=== PATIENT | female | born 1980 | race Caucasian/White ===

== ENCOUNTER → 2019-05-24 10:30 | Outpatient (CLI) | payer SELFPAY ==
[2019-05-25 13:59] LABS: Chlamydia Trachomatis by PCR Negative (Negative)
[2019-05-25 14:00] LABS: Neisserai gonorrhoeae by PCR Negative (Negative); Probe Check PASS; Sample Adequacy Control PASS; Specimen Processing Control PASS
== END ==
PROVIDERS: Referring Provider Obstetrics & Gynecology; Visit Provider Obstetrics & Gynecology
DX: Z34.82 Encounter for supervision of other normal pregnancy, second trimester (principal); Z11.3 Encounter for screening for infections with a predominantly sexual mode of transmission
CPT/HCPCS: 87491; 87591

== ENCOUNTER 2019-11-14 10:00 | Inpatient (IN) | payer SELFPAY ==
--- NOTE | 2019-11-13 21:27 | PCM.HP.BLA ---
History and Physical Date of Admission: 11/14/19 ACOG ANTEPARTUM RECORD - HISTORY AND PHYSICAL (11/13/2019) Name: URBANO BINGHAM History of This : This is a 39-year-old 12 para 7 AB 4 who presents for primary section and tubal. She desires elective section because of extremely difficult labors that she has had in the past. She also desires permanent sterilization and has considered this form of control for quite some time. OB Physician: SANDIP [place]'s Physician: ...................................................................... : 1980 Age: 39 Address: [address] [place] [address] Phone: (h) [phone] (O) [phone] Insurance Carrier: [employer] [phone] Emergency Contact: NO ONE ...................................................................... Final KEVYN: 11/20/19 By Ultrasound: 11 weeks 4 days PARITY:[id number] (G-Total Pregnancies P-Fullterm,Premature,Induced AB,Spont AB, Ectopics, Multiple,Living) KEVYN CONFIRMATION: By LMP: 02/12/19 Initial Exam: 05/04/19 Final KEVYN: 11/20/19 OB PROBLEM LIST: Considering Elective prefers [facility] but OK with WC if needed Declines AFP with consent signed as such Transfer of care from Gonzalez Zayas ALLERGIES: Adhesive Tape Hives and/or rash NKA MEDICATIONS: magnesium 200 mg tablet As Directed Supplement (s) [No Strength] As Directed enzymes Supplement (s) [No Strength] As Directed iodine Supplement (s) [No Strength] As Directed probiotics Supplement (s) [No Strength] cayenne (for warmth) vitamin B complex capsule As Directed SOCIAL HISTORY: Smoking - denies smoking Alcohol Use - denies drinking Diet - no special diet Lifestyle - moderate stress lifestyle and Exercise - active work Employer - [employer] 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 Drug Use - denies use of street drugs Sexual Activity - Spouse-Sig Other Name - Jose Angel Spouse-Sig Other Occupation - [employer] Spouse-Sig Other Phone No - [phone] Children Name(s) - 7 children 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 Jul 23 41 24 0 0 Vagin Epidural No Jan 21 40 24 0 0 Vag Epidural No Dec 26 40 9 0 0 Vag None No Sep 17 41 38 0 0 Vag None No November 23 40 24 0 0 Vag None No Jan 27 41 36 0 0 Vag None No May 18 40 34 0 0 Vag Epidural No ANTEPARTUM FLOW CHART VISIT RTC FU F F MO U U DATE WK WKS HT PN HR M SS BP ED WT MO GL D EF ST __ ____ ___ __ __ ___ __ __ __ ___ __ __ __ ___ __ 28 Oct JMW 3 38 + + 118/80 sl 201 tr - Oct JMW 2 36 + + 104/68 sl 197 tr - Aug 06 JMW 6 25 + + 108/70 sl 191 - tr Jun 30 JMW 4 19 + + 118/74 tr 187 tr - May 26 JMW 5 14 + + 122/68 0 181 tr - ANTEPARTUM NOTE(S): Nov 08 2019: Doing Well, PAT packet given Oct 25 2019: LARC form signed,Good FM Aug 09 2019: CBC,OGCT Today,Good FM Jun 28 2019: Sono Today,Good FM,Feeling Well May 24 2019: Doing Well, Declines AFP COMPREHENSIVE ANTEPARTUM NOTE(S): Nov 08 2019: Urbano presents for her PNV. She is sched for a P/ and BTO 10/15/[address] [facility] per Dr Grant. Procedure reviewed and consents signed. PAT packet given. Clorhexadine wash given with instructions. JT May 24 2019: Urbano is a 38yo G12, P7, AB 4 transfer of care from Gonzalez Zayas. Pt relates she has a hx of very long and difficult labors averaging 24-36hrs of labor and all 's between 40 and 42wks GA. Pt is accompanied by her Jose Angel and they would like to consider elective for this delivery. They prefer [facility], but verbalizes ok with [facility]. Pt sts she had not thought of a tubal, but is definitely done having children so she will consider this if they go the elective vs vag del with epidural. Genetics screening questionnaire completed and pt notes a hx of Pt's 1sister with Down's and 1sister with seizures. She also has 1son born with only 1kidney but doing well, and another son with Glycogen storage disease(genetic liver condition) for which they are under the care and study of Dr Hwang. AFP testing discussed and declined with consent signed as such. Pt had initial OB labs drawn per Anni Zayas's office however the HIV test was missing so this was done in office today and sent to [facility] lab. Pt was up to date on pap, but GC/Chlamydia culture done today as well. Diet, exercise, and Wt gain discussed and food safety sheets as well as dietary handouts given. I recommended small meals with a light snack in between, and try to incorporate Protein and complex carbs in each. I also encouraged a minimum of 1gal H2O/day. Warning signs reviewed and Major body changes handout given. checklist completed. Detailed history updated. LMP 02/12/19, KEVYN by LMP 11/20/19. U/S done per Dr Grant for dating today, and KEVYN confirmed. Pt denies any use of alcohol, Tobacco, or recreational drugs. She has had chickenpox. No questions or concerns voiced. She is taking multiple vitamin supplements. Visit was approx 45min. JT REVIEW OF SYSTEMS: GENERAL - Denies fever, or chills SKIN - Denies rash, new skin lesions, or change in moles EYES - Denies blurred vision, or change in visual acuity EARS - Denies ear pain, or difficulty hearing NOSE - Denies nasal congestion, discharge, or bleeding MOUTH - Denies sore throat, or difficulty swallowing NECK - Denies pain or swelling RESPIRATORY - Denies shortness of breath, cough, wheezing CARDIOVASCULAR - Denies palpitations, chest pain, orthopnea, PND, peripheral edema, syncope or claudication GASTROINTESTINAL - Denies nausea, vomiting, diarrhea, constipation, Denies abdominal pain, melena and or bright red blood GENITOURINARY - Denies dysuria, frequency of urination, urgency, or hesitancy MUSCULOSKELETAL - Denies joint or muscle pain, or back pain NEUROLOGICAL - Denies localized numbness, weakness, or tingling PSYCHIATRIC - Denies depression, anxiety, substance abuse or suicide attempts ENDOCRINE - Denies heat or cold intolerance, weight loss or gain, increasing thirst HEMATO-IMMUNOLOGIC - Denies easy bruising, bleeding, oral ulcerations or recurrent infections GENETICS SCREENING: Age 35+ years: Yes Thalassemia: No Neural Tube Defect: No Down Syndrome: Yes, sister NUNO-SACSHIVAM: No Sickle Cell Disease: No Hemophilia: No Musc. Dystrophy: No Cystic Fibrosis: No-declines screening [place] Chorea: No Mental Retardation: No Fragile X: No Other genetic: No Other defects: No SABs/still births: Yes x4 Drugs since LMP: No INFECTION HISTORY: High risk AIDS: No High risk Hepatitis: No Exposed to TB: No Exposed to Herpes: No Rash/viral illness since LMP: No History of STD: No MENSTRUAL HISTORY: *Menses Amount/Duration: 5 to 7 daysMenses Regularity: RegularFrequency: monthlyMenarche (Age Onset): 12* PAST SUMMARY: PARITY: 1. Total Pregnancies............ 12 2. Full Term Pregnancies........ 7 3. Premature.................... 0 4. Abortions - Induced.......... 0 5. Abortions - Spontaneous...... 4 6. Ectopics..................... 0 7. Multiple Births.............. 0 8. Living Children.............. 7 PAST #1: Date of :.................. 06/07/06 Gestation Weeks:................ 40 Length of labor(hours):......... 34 Sex:............................ F Weight-lbs:............... 0 Weight-oz:................ 0 Type of Delivery:............... Vag Type of Anesthesia:............. Epidural Place of Delivery:.............. [facility] Treatment of Labor?:.... No Comment: PAST #2: Date of :.................. 09/25/07 Gestation Weeks:................ 41 Length of labor(hours):......... 38 Sex:............................ F Weight-lbs:............... 0 Weight-oz:................ 0 Type of Delivery:............... Vag Type of Anesthesia:............. None Place of Delivery:.............. [facility] Treatment of Labor?:.... No Comment: PAST #4: Date of :.................. 07/18/10 Gestation Weeks:................ 41 Length of labor(hours):......... 24 Sex:............................ M Weight-lbs:............... 0 Weight-oz:................ 0 Type of Delivery:............... Vaginal Type of Anesthesia:............. Epidural Place of Delivery:.............. [facility] Treatment of Labor?:.... No Comment: PAST #5: Date of :.................. 01/24/12 Gestation Weeks:................ 40 Length of labor(hours):......... 24 Sex:............................ M Weight-lbs:............... 0 Weight-oz:................ 0 Type of Delivery:............... Vag Type of Anesthesia:............. Epidural Place of Delivery:.............. [facility] Treatment of Labor?:.... No Comment: PAST #6: Date of :.................. 11/25/13 Gestation Weeks:................ 40 Length of labor(hours):......... 24 Sex:............................ M Weight-lbs:............... 0 Weight-oz:................ 0 Type of Delivery:............... Vag Type of Anesthesia:............. None Place of Delivery:.............. [facility] Treatment of Labor?:.... No Comment: PAST #7: Date of :.................. 12/25/15 Gestation Weeks:................ 40 Length of labor(hours):......... 9 Sex:............................ F Weight-lbs:............... 0 Weight-oz:................ 0 Type of Delivery:............... Vag Type of Anesthesia:............. None Place of Delivery:.............. [facility] Treatment of Labor?:.... No Comment: PAST #9: Date of :.................. 01/27/18 Gestation Weeks:................ 41 Length of labor(hours):......... 36 Sex:............................ F Weight-lbs:............... 0 Weight-oz:................ 0 Type of Delivery:............... Vag Type of Anesthesia:............. None Place of Delivery:.............. [facility] Treatment of Labor?:.... No Comment: PHYSICAL EXAMINATION General Appearence: 39 yo female in no acute distress Vital Signs: AF, VSS Heart: RRR without rubs or gallops Lungs: CTA x 2 Breasts: deferred Abdomen: gravid Pelvis: Cervix: Presentation: cephalic Station: Fetus: Size: AGA Movement: present Heart: present Labs for : URBANO BINGHAM since 02/23/2019 ORDER DATEIN DESCRIPTION VALUE UNITS RANGE A+ COMMENT CBC + DIFF 08/09/19 NOTE Original Ordering Provider: KARLIE GRANT CBC + DIFF CBC-COMPLETE BLOOD COUNT WBC 10.8 x 10EE3/UL 4.5 - 10.8 RBC 3.91 x 10EE6/UL 4.10 - 5.30 L HEMOGLOBIN 11.7 g/dl 12.0 - 16.0 L HEMATOCRIT 34.6 % 34.0 - 46.0 MCV 89 fl 80 - 99 MCH 30 pg 27 - 33 MCHC 34 X10 3 32 - 36 RDW/CV 13.8 % 12.0 - 15.6 PLATELET 295 x10EE3/UL 150 - 450 MPV 9.5 fl 6.6 - 10.5 AUTOMATED DIFFERENTIAL NEUT % 67.0 % 46.0 - 76.0 LYMPH % 24.5 % 20.0 - 45.0 MONOS % 7.2 % 0.0 - 10.0 EO % 0.8 % 0.0 - 7.0 BASO % 0.5 % 0.0 - 2.0 LYMPH # 2.60 x10EE3/UL 0.80 - 2.80 NEUT # 7.20 x10EE3/UL 1.50 - 7.10 H MONO # 0.80 x10EE3/UL 0.20 - 1.00 EO # 0.10 x10EE3/UL 0.00 - 0.50 BASO # 0.10 x10EE3/UL 0.00 - 0.10 MANUAL DIFF N/A MORPHOLOGY N/A Reviewed by KARLIE GLUCOSE CHALLENGE 50GM 1 HOUR 08/09/19 NOTE Original Ordering Provider: KARLIE GRANT GLUCOSE CHALLENGE 50GM 1 HOUR GLUCOSE CHALLENGE 50 GMS 1 HOUR GLUCOSE 1HR 128 mg/dl 70 - [address] BY PCR 05/24/19 NOTE Original Ordering Provider: Karlie Grant [facility] PCR Negative Negative NG BY PCR Negative Negative Reviewed by KARLIE Panel-Thyroid 05/23/19 Thyroid Stimulating Hormone 0.628 micro IU/ml 0.4-5.5 Reviewed by KARLIE Initial OB Labs 05/04/19 Blood Type A Rh Type positive Antibody Screen negative Negative Hemoglobin Initial OB 13.2 Hematocrit Initial OB 40.5 PLT 338 Rubella immune Immune VDRL non reactive Non Reactive HBsAg negative Negative Urine Protein neg Negative Urine Glucose neg Negative Reviewed by KARLIE PROVIDER SIGNATURE ( REQUIRED) Impression /Plan: 39+ week intrauterine for primary elective and sterilization with Filsche Clips. We have discussed the risks, benefits, and alternatives of this procedure and desires that we proceed. She also understands the permanent nature of sterilization as well as the failure rate of 1 to 2% and the availability of other nonpermanent control options. All questions were answered. Preparations in progress for delivery. Essential Procedure Criteria Procedure Essential: Yes Criteria Note: On 09/27/2019 the [place] Department of Health ([facility]) Public Order signed by [facility] Director Dina Cole M.D., regarding the Management of Non-Essential Surgeries and Procedures for the purpose of preserving Personal Protective Equipment (PPE) and critical hospital capacity and resources within [place] went into effect as of 09/28/2019 at 5:00PM. According to the [facility] Public Order: This action will remain in full force and effect until the State of Emergency declared by the Governor no longer exists or the Director of the [facility] rescinds or modifies this Order.. This [facility] order stated all non-essential or elective surgeries and procedures that utilize PPE should be delayed unless there is undue risk to the current or future health of a patient. After reviewing the aforementioned [facility] Public Order and the patients clinical case, I have determined that the scheduled procedure meets the criteria to go forward. Risk to Patient if Procedure Delayed: Risk of rapidly worsening to severe symptoms if delayed
[2019-11-14] VITALS (18 sets, daily range): BP systolic 104–132; BP diastolic 47–77; PULSE 58–76; RESP 16–18; TEMP 36.2–37.6; O2SAT 95–100; BMI 35.8
[2019-11-14] MEDS: Lactated Ringers 1,000 ML 999 ML IV (10:40)
[2019-11-14 11:01] LABS: Absolute Lymphocyte Count 2.17 X10^3/uL (0.83-4.51); Absolute Neutrophil Count 9.3 X10^3/uL (2.0-7.7); Basophil# 0.04 X10^3/uL; Basophil% 0.3 % (0-1); Eosinophil# 0.04 X10^3/uL; Eosinophils% 0.3 % (0-5); Hematocrit 37.3 % (37-47); Hemoglobin 12.1 g/dL (12.0-15.0); Lymphocyte # 2.17 X10^3/ul (4.0); Lymphocyte % 17.2 % (19-41); Mean Corp Hgb Conc 32.4 g/dL (32-36); Mean Corpuscular Hgb 28.8 pg (27.0-32.0); Mean Corpuscular Volume 88.8 fL (81-99); Mean Platelet Vol. 11.5 fl (6.2-12.0); Monocyte# 0.91 X10^3/uL; Monocyte% 7.2 % (0-10); NRBC Flagged by Analyzer 0 % (0-5); Neutrophil # 9.29 X10^3/uL (2.7-7.7); Neutrophil % 73.9 % (47-70); Platelet Count 279 K/mm3 (150-450); RBC Distribution Width CV 13.8 % (11.6-14.6); RBC Distribution Width SD 44.1 fl (35.1-43.9); White Blood Count 12.6 K/mm3 (4.4-11.0)
--- NOTE | 2019-11-14 11:29 | PCM.OPRPT ---
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 Min Type of Anesthesia:: Spinal - With Duramorph Implants Used: None Date of Procedure: 11/14/19 Pre-Operative Diagnosis: Elective , Desires Permanent Sterilization Post-Operative Diagnosis: Elective , Desires Permanent Sterilization Description of Procedure: Surgeon: Taiwo Grant MD, FACOG Anesthesia: Cristal Walls CRNA Anesthesia: Spinal with Duramorph Pre-op Diagnosis: Elective Section, Desires Permanent Sterilization Post-Op Diagnosis: Elective Section, Desires Permanent Sterilization Procedure: Primary Low Transverse Cervical Caesarean Section And Bilateral Tubal Occlusion with Filshie Clips Findings: Viable female infant with Apgars of 8/9 in occiput anterior presentation with clear amniotic fluid and normal three-vessel placenta. Indication: This is a 39-year-old 12 para 7 AB 4 who presents for primary section and tubal. She desires elective section because of extremely difficult labors that she has had in the past. She also desires permanent sterilization and has considered this form of control for quite some time. care has otherwise been uneventful. The patient has been counseled regarding the risk and indications of this procedure including the possibility of bleeding infection and injury to surrounding structures such as bowel bladder. She also understands the permanent nature of her tubal, the failure rate of 1 to 2%, and the availability of other nonpermanent control options. All questions were answered. Procedure: Patient was taken to the operating room where after spinal anesthesia was placed, the patient was prepped and draped in usual sterile fashion and a Ponce catheter was placed. The abdomen was entered through a Pfannenstiel incision and peritoneum was entered bluntly. After developing a bladder flap on the lower uterine segment a low transverse incision was made on the uterus and head was easily delivered onto the operative field the nose mouth and oropharynx were bulb suctioned. Subsequently a viable female was born with Apgars of 8/9. The was noted to cry move all extremities vigorously on the operative field. The umbilical cord was doubly clamped and ligated and infant handed to the nursery personnel who were present for the delivery. Placenta was delivered and noted to be 3 vessels and normal. Uterus was exteriorized and remaining placental tissue was removed. The uterus was then closed in 2 layers first with running locked 0 Vicryl suture followed by a second imbricating layer with 0 Vicryl suture. 0 Vicryl suture was then used in a horizontal mattress interrupted fashion to affect final hemostasis of the uterine incision line. Normal fallopian tubes and ovaries were visualized and Filshie clips were placed approximately 1 to 2 cm from the uterine fundus on each tube. The uterus was returned to the pelvis. Hemostasis was noted and rectus abdominis muscles were reapproximated in the midline with interrupted Number 0 Vicryl suture in a horizontal mattress fashion. Fascia was closed with running Number 1 PDS Strata fix suture. Subcutaneous tissue was irrigated with copious amounts of saline solution and then closed with running 3-0 Vicryl suture. Skin was closed with 4-0 monocryl suture in a running subcuticular fashion. Steri strips and a Mepilex dressing were placed across the incision. The patient tolerated the procedure well and was taken to the recovery room in satisfactory condition. Sponge, needle, and instrument counts were all reportedly correct. EBL was less than 500 cc. Ancef 2 gms IV was given prior to the procedure. Spicemen to Pathology: None Complications: None Amniotic Fluid Description: Clear Placenta Disposition: [facility] Specimen(s) sent to pathology: None Drain: Ponce to straight drain Fluids Replaced: Crystalloid Cord Entanglement: None Esitmated Blood Loss (ml): 500 cc Infant Gender: Female (1 minute): 8 (5 minute): 9 Antibiotic Given: Ancef 2 grams IV x1 Pt instructed on risks of surgery: Bleeding, Infection, Permanency, Failure Rate of 1 to 2%, Injury to surrounding structure(s) including bowel and bladder, Availability of other non-permanent control options Complications: None - Admit VTE Documentation VTE Present on Admission: Yes VTE Mechan Device Prophylaxis: SCD's VTE Pharm Prophylaxis ordered?: No
[2019-11-14] MEDS: Sodium Citrate/Citric Acid 30 ML UDC PO (11:38)
[2019-11-14] MEDS: Lactated Ringers 1,000 ML 150 ML IV (11:38)
--- NOTE | 2019-11-14 11:43 | DCINST_ITS ---
<Taiwo Grant - Last Filed: 11/14/19 13:29> Discharge Diet: No Restrictions Discharge Activity: May not drive while taking narcotic pain medications., May Shower, May Take a Tub Bath May resume sexual activity in: 4-6 weeks Lifting Restrictions: 20 pounds Additional Activity Instructions:: Nothing in the vagina for 4-6 weeks. You may return to work/school in 6 weeks. Call your doctor if your incision/area has: Continuous Slow Oozing, Sudden Increased Bleeding, Increased Pain/ Swelling, Increased Redness, Foul Smelling Discharge Call your doctor if you observe: Inability to urinate, Inability to have a bowel movement, Using more than one pad per hour Additional Instructions: If you experience any of the following, contact your healthcare provider. * Bleeding that soaks a pad every hour for 2 hours * Fever 100.4 or higher * Unrelieved incision or abdominal pain * Swelling, redness, discharge or bleeding from your incision or episiotomy site * Your incision begins to separate * Problems urinating (including inability to urinate or burning while urinating). * Visual changes * Severe headache * Flu-like symptoms * Pain or redness in one of both of your breasts * Pain, warmth, tenderness or swelling in your legs, especially the calf area * Frequent nausea and vomiting * Symptoms of depression or anxiety If you experience any of the following, call 911 or go to the nearest Emergency Room. * Chest pain * Problems breathing * Seizure activity * Partial or complete paralysis of a body part, slurred speech, weakness or drooping of the face, or a sudden inability to walk or hold your balance Allergies/Adverse Reactions: Allergies No Known Allergies Allergy (Verified 11/14/19 10:48) Medications to take at Discharge Docusate Sodium [Colace] 100 mg PO DAILY PRN PRN #60 cap 11/14/19 Oxycodone [Oxyir] 5 mg PO Q6H PRN PRN 7 Days #20 tab 11/14/19 The following prescriptions were given: Docusate Sodium [Colace] 100 mg PO DAILY PRN PRN #60 cap PRN Reason: Constipation Transmission Status: Received by [facility] Oxycodone [Oxyir] 5 mg PO Q6H PRN PRN 7 Days #20 tab PRN Reason: Pain Score 6-10/10 Transmission Status: Received by [facility] Follow-Up: Call to make an appointment with your doctor for an incision check in 1-2 weeks. You will also need a 6 week post- follow up appointment. Test results from this visit will be discussed in further detail at your follow- up appointment, if applicable. Please Follow Up With: Taiwo Grant MD - [phone] When: Call to make an appointment for an incision check in 2 weeks. <Maryuri Lancaster - Last Filed: 11/17/19 08:05> Additional Instructions: If you experience any of the following, contact your healthcare provider. * Bleeding that soaks a pad every hour for 2 hours * Fever 100.4 or higher * Unrelieved incision or abdominal pain * Swelling, redness, discharge or bleeding from your incision or epis iotomy site * Your incision begins to separate * Problems urinating (including inability to urinate or burning while urinating). * Visual changes * Severe headache * Flu-like symptoms * Pain or redness in one of both of your breasts * Pain, warmth, tenderness or swelling in your legs, especially the calf area * Frequent nausea and vomiting * Symptoms of depression or anxiety If you experience any of the following, call 911 or go to the nearest Emergency Room. * Chest pain * Problems breathing * Seizure activity * Partial or complete paralysis of a body part, slurred speech, weakness or drooping of the face, or a sudden inability to walk or hold your balance Follow-Up: Call to make an appointment with your doctor for an incision check in 1-2 weeks. You will also need a 6 week post- follow up appointment. Test results from this visit will be discussed in further detail at your follow- up appointment, if applicable.
[2019-11-14] MEDS: Cefazolin 2 GM in 0.9% Normal Saline 100 ML IV (11:44)
[2019-11-14] MEDS: Oxytocin 30 units/NS 500 ml 30 UNITS/500 ML IV.SOLN 167 UNITS IV (13:05)
[2019-11-14] MEDS: Lactated Ringers 1,000 ML 100 ML IV (16:14)
[2019-11-14] MEDS: Ketorolac 30 MG/ML Syringe IV (18:21)
[2019-11-14] MEDS: Acetaminophen 500 MG Tablet 1000 MG PO (22:36)
[2019-11-15] VITALS (7 sets, daily range): BP systolic 95–128; BP diastolic 46–74; PULSE 55–74; RESP 16–18; TEMP 36.3–37; O2SAT 94–97
[2019-11-15] MEDS: 0.9% Saline Lock 10 ML Syringe IV ×4 (00:44→17:42)
[2019-11-15] MEDS: Ketorolac 30 MG/ML Syringe IV ×4 (00:44→17:42)
[2019-11-15 06:07] LABS: Hemoglobin 9.9 g/dL (12.0-15.0); Mean Corpuscular Hgb 29.8 pg (27.0-32.0); Mean Corpuscular Volume 90.4 fL (81-99); Mean Platelet Vol. 11.2 fl (6.2-12.0); Platelet Count 220 K/mm3 (150-450); RBC Distribution Width CV 13.5 % (11.6-14.6); RBC Distribution Width SD 44.2 fl (35.1-43.9); Red Blood Count 3.32 M/mm3 (4.2-5.4); White Blood Count 12.1 K/mm3 (4.4-11.0)
--- NOTE | 2019-11-15 09:03 | PN.OBGYN_ITS ---
Subjective: Doing okay. When in bed, little pain, but when up to the bathroom etc pain is a 5-6/10. IV medicine is helping. Denies heavy bleeding. Nursing, but latching issues. Daughter is sleeping and wants to wait to wake her. Objective: VSS. Fundus, firm, midline, u/1. Lochia rubra moderate. . - Physical Exam Vitals/I&O's: Vital Signs Temp Pulse Resp BP Pulse Ox 97.5 F L 55 L 16 95/46 L 96 11/15/19 05:44 11/15/19 05:44 11/15/19 05:44 11/15/19 05:44 11/15/19 05:44 Oxygen Delivery Method Room Air Weight: 88.9 kg Body Mass Index (BMI) 35.8 Intake and Output for Last 24 Hours 11/13/19 11/14/19 11/15/19 23:59 23:59 23:59 Intake Total 4434.03 / 4434.03 Output Total 1999 300 / 300 Balance 2434.03 / 2434.03 -300 / -300 General: Alert, Oriented x3, Cooperative HEENT: Atraumatic, PERRLA, EOMI, Normocephalic Neck: Supple, No JVD, Negative Carotid Bruits Lungs: Clear to auscultation, Normal air movement Cardiovascular: Regular rate, No murmurs Abdomen: Bowel Sounds Present, Soft, Hypoactive Bowel Sounds, - - u/1, dressing CDI Extremities: No edema, Capillary Refill Less than 3 Seconds Skin: No rashes, No breakdown Musculoskeletal: No Tenderness to Palpation of Joints or Extremities Neurological: Cranial nerves II-XII grossly intact Psych/Mental Status: Normal Affect, Appropriate Laboratory Results 11/14/19 10:40: WBC 12.6 H, RBC 4.20, Hgb 12.1, Hct 37.3, MCV 88.8, MCH 28.8, MCHC 32.4, RDW Std Deviation 44.1 H, RDW Coeff of Chanelle 13.8, Plt Count 279, MPV 11.5, Immature Gran % (Auto) 1.100 H, Neut % (Auto) 73.9 H, Lymph % (Auto) 17.2 L, [place] % (Auto) 7.2, Eos % (Auto) 0.3, Baso % (Auto) 0.3, Absolute Neuts (auto) 9.3 H, Absolute Lymphs (auto) 2.17, Nucleated RBC % 0 11/14/19 10:40: Blood Type A POSITIVE, Antibody Screen NEGATIVE 11/15/19 05:55: WBC 12.1 H, RBC 3.32 L, Hgb 9.9 L, Hct 30.0 L, MCV 90.4, MCH 29.8, MCHC 33.0, RDW Std Deviation 44.2 H, RDW Coeff of Chanelle 13.5, Plt Count 220, MPV 11.2 Current Medications Acetaminophen (Tylenol) 1,000 mg PO Q8H PRN PRN Reason: Pain Score 1-3/10 Last Admin: 11/14/19 22:36 Dose: 1,000 mg Documented by: Bisacodyl (Dulcolax) 10 mg RECTAL UD PRN PRN Reason: If no BM Diphenhydramine HCl (Benadryl) 25 mg PO Q6H PRN PRN PRN Reason: ITCHING Stop: 11/15/19 18:14 Hydrocortisone (Hytone) 1 applic TOPICAL TID PRN PRN; Protocol PRN Reason: Discomfort Naloxone HCl 4 mg/ Dextrose 504 mls @ 0 mls/hr IV .Q0M PRN; Protocol PRN Reason: Respiratory depression Ibuprofen (Motrin) 600 mg PO Q6H PRN PRN PRN Reason: Pain Score 1-3/10 Ketorolac Tromethamine (Toradol (Bkc)) 30 mg IV Q6H NISHI Stop: 11/16/19 12:01 Last Admin: 11/15/19 05:50 Dose: 30 mg Documented by: Methylergonovine Maleate (Methergine) 0.2 mg IM X1 PRN PRN Reason: Uterine Atony Naloxone HCl (Narcan) 0.02 mg IV Q1M PRN PRN Reason: RR <10 and pt unresponsive Ondansetron HCl (Zofran) 4 mg IV Q4H PRN PRN PRN Reason: Nausea Oxycodone HCl (Oxyir) 5 - 10 mg PO Q4H PRN PRN PRN Reason: Pain Score 4-10/10 Prochlorperazine Edisylate (Compazine Iv) 10 mg IV Q6H PRN PRN PRN Reason: NAUSEA Senna/Docusate Sodium (Senokot-S, Ondina-Colace) 0 tablet PO DAILY PRN PRN Reason: Constipation Simethicone (Mylicon) 80 mg PO PCHS PRN PRN Reason: Indigestion/stomach pain Sodium Chloride () 5 - 15 ml IV UD PRN PRN Reason: SALINE FLUSH Last Admin: 11/15/19 05:50 Dose: 10 ml Documented by: Medical Necessity - Tobacco Use Smoking Status: Never smoker Assessment/Plan POD #1 of csection with bilateral tubal ligation Moderate pain control with IV medication, but wants to switch to oral medication today Unsure whether she wants to discharge tomorrow or with mild difficulty, to follow Normal csection course, continue current orders
[2019-11-15] MEDS: Acetaminophen 500 MG Tablet 1000 MG PO (11:02)
[2019-11-15] MEDS: Senna/Docusate Sodium 1 Tablet PO (21:16)
--- NOTE | 2019-11-16 00:27 | NURSING ---
pt does bot anymore toradol administration painful IV dcd
[2019-11-16] MEDS: oxyCODONE 5 MG Tablet PO (00:35)
[2019-11-16 01:30] VITALS: BP 102/56; PULSE 68; RESP 16; TEMP 36.6; O2SAT 96
[2019-11-16] MEDS: Acetaminophen 500 MG Tablet 1000 MG PO ×3 (04:12→23:26)
[2019-11-16] MEDS: Ibuprofen 600 MG Tablet PO ×3 (06:09→20:15)
--- NOTE | 2019-11-16 08:08 | PCM.PN.OB ---
Subjective: Very tired. Needs sleep. Asking for at least 1 hour of help because had to go back to the farm. Denies pain or heavy bleeding, just exhausted. Objective: Fundus firm, midline, u/2. Lochia rubra scant. VSS - Physical Exam Vitals/I&O's: Vital Signs Temp Pulse Resp BP Pulse Ox 97.9 F 68 16 102/56 L 96 11/16/19 01:30 11/16/19 01:30 11/16/19 01:30 11/16/19 01:30 11/16/19 01:30 Oxygen Delivery Method Room Air Weight: 88.9 kg Body Mass Index (BMI) 35.8 Intake and Output for Last 24 Hours 11/14/19 11/15/19 11/16/19 23:59 23:59 23:59 Intake Total 4434.03 / 4434.03 Output Total 1999 300 / 300 Balance 2434.03 / 2434.03 -300 / -300 General: Alert, Oriented x3, Cooperative HEENT: Atraumatic, PERRLA, EOMI, Normocephalic Neck: Supple, No JVD, Negative Carotid Bruits Lungs: Clear to auscultation, Normal air movement Cardiovascular: Regular rate, No murmurs Abdomen: Bowel Sounds Present, Soft, Non Tender, - - Dressing CDI Extremities: No edema, Capillary Refill Less than 3 Seconds Skin: No rashes, No breakdown, Incision - csection CDI Musculoskeletal: No Tenderness to Palpation of Joints or Extremities Neurological: Cranial nerves II-XII grossly intact Psych/Mental Status: Normal Affect, Appropriate Current Medications Acetaminophen (Tylenol) 1,000 mg PO Q8H PRN PRN Reason: Pain Score 1-310 Last Admin: 11/16/19 04:12 Dose: 1,000 mg Documented by: Bisacodyl (Dulcolax) 10 mg RECTAL UD PRN PRN Reason: If no BM Hydrocortisone (Hytone) 1 applic TOPICAL TID PRN PRN; Protocol PRN Reason: Discomfort Naloxone HCl 4 mg/ Dextrose 504 mls @ 0 mls/hr IV .Q0M PRN; Protocol PRN Reason: Respiratory depression Ibuprofen (Motrin) 600 mg PO Q6H PRN PRN PRN Reason: Pain Score 1-310 Last Admin: 11/16/19 06:09 Dose: 600 mg Documented by: Methylergonovine Maleate (Methergine) 0.2 mg IM X1 PRN PRN Reason: Uterine Atony Naloxone HCl (Narcan) 0.02 mg IV Q1M PRN PRN Reason: RR <10 and pt unresponsive Ondansetron HCl (Zofran) 4 mg IV Q4H PRN PRN PRN Reason: Nausea Oxycodone HCl (Oxyir) 5 - 10 mg PO Q4H PRN PRN PRN Reason: Pain Score 4-10/10 Last Admin: 11/16/19 00:35 Dose: 5 mg Documented by: Prochlorperazine Edisylate (Compazine Iv) 10 mg IV Q6H PRN PRN PRN Reason: NAUSEA Senna/Docusate Sodium (Senokot-S, Ondina-Colace) 0 tablet PO DAILY PRN PRN Reason: Constipation Last Admin: 11/15/19 21:16 Dose: 1 tablet Documented by: Simethicone (Mylicon) 80 mg PO PCHS PRN PRN Reason: Indigestion/stomach pain Sodium Chloride () 5 - 15 ml IV UD PRN PRN Reason: SALINE FLUSH Last Admin: 11/15/19 17:42 Dose: 10 ml Documented by: Medical Necessity - Tobacco Use Smoking Status: Never smoker Assessment/Plan A/P: POD #2 of csection with BTL Very fatigued Pain well controlled Normal course and involution Infant taken to nursery by screen writer for patient to rest May want to discharge tomorrow instead of today, will decide after resting
[2019-11-16 09:00] VITALS: BP 107/63; PULSE 69; RESP 16; TEMP 36.6
[2019-11-16] MEDS: Senna/Docusate Sodium 1 Tablet PO (11:35)
[2019-11-16 14:20] VITALS: BP 95/50; PULSE 70; RESP 16; TEMP 36.8
[2019-11-16 20:15] VITALS: BP 134/76; PULSE 71; RESP 20; TEMP 36.6
[2019-11-17 03:10] VITALS: BP 113/73; PULSE 63; RESP 18; TEMP 37
[2019-11-17] MEDS: Senna/Docusate Sodium 1 Tablet PO (04:56)
[2019-11-17] MEDS: Ibuprofen 600 MG Tablet PO (04:56)
--- NOTE | 2019-11-17 08:05 | DS.PCM_ITS ---
Discharge Date and Diagnosis Date of Admission: 11/14/19 Date of Discharge: 11/17/19 Hospital Course and Treatment Summary of Care Provided: The patient is a 39 year old F [] Subjective: Doing well. Still very tired and needs help at night. Ready to go home. Denies uncontrolled pain or heavy bleeding. is now going well. Objective: VSS. Dressing CDI and removed to reveal steri strips intact with old dried blood y drainage. Fundus, firm, midline u/2. Lochia rubra light. - Physical Exam Vitals/I&O's: Vital Signs Temp Pulse Resp BP Pulse Ox 98.6 F 63 18 113/73 96 11/17/19 03:10 11/17/19 03:10 11/17/19 03:10 11/17/19 03:10 11/16/19 01:30 Oxygen Delivery Method Room Air Weight: 88.9 kg Body Mass Index (BMI) 35.8 Intake and Output for Last 24 Hours 11/15/19 11/16/19 11/17/19 23:59 23:59 23:59 Output Total 300 / 300 Balance -300 / -300 General: Alert, Oriented x3, Cooperative HEENT: Atraumatic, PERRLA, EOMI, Normocephalic Neck: Supple, No JVD, Negative Carotid Bruits Lungs: Clear to auscultation, Normal air movement Cardiovascular: Regular rate, No murmurs Abdomen: Bowel Sounds Present, Soft, Non Tender, Passing Flatus, Tender, - - dressing removed to reveal incision with steri strips, no redness warmth or edema Extremities: No edema, Capillary Refill Less than 3 Seconds Skin: No rashes, No breakdown Musculoskeletal: No Tenderness to Palpation of Joints or Extremities Neurological: Cranial nerves II-XII grossly intact Psych/Mental Status: Normal Affect, Appropriate Current Medications Acetaminophen (Tylenol) 1,000 mg PO Q8H PRN PRN Reason: Pain Score 1-3/10 Last Admin: 11/16/19 23:26 Dose: 1,000 mg Documented by: Bisacodyl (Dulcolax) 10 mg RECTAL UD PRN PRN Reason: If no BM Hydrocortisone (Hytone) 1 applic TOPICAL TID PRN PRN; Protocol PRN Reason: Discomfort Naloxone HCl 4 mg/ Dextrose 504 mls @ 0 mls/hr IV .Q0M PRN; Protocol PRN Reason: Respiratory depression Ibuprofen (Motrin) 600 mg PO Q6H PRN PRN PRN Reason: Pain Score 1-3/10 Last Admin: 11/17/19 04:56 Dose: 600 mg Documented by: Methylergonovine Maleate (Methergine) 0.2 mg IM X1 PRN PRN Reason: Uterine Atony Naloxone HCl (Narcan) 0.02 mg IV Q1M PRN PRN Reason: RR <10 and pt unresponsive Ondansetron HCl (Zofran) 4 mg IV Q4H PRN PRN PRN Reason: Nausea Oxycodone HCl (Oxyir) 5 - 10 mg PO Q4H PRN PRN PRN Reason: Pain Score 4-10/10 Last Admin: 11/16/19 00:35 Dose: 5 mg Documented by: Prochlorperazine Edisylate (Compazine Iv) 10 mg IV Q6H PRN PRN PRN Reason: NAUSEA Senna/Docusate Sodium (Senokot-S, Ondina-Colace) 0 tablet PO DAILY PRN PRN Reason: Constipation Last Admin: 11/17/19 04:56 Dose: 2 tablet Documented by: Simethicone (Mylicon) 80 mg PO PCHS PRN PRN Reason: Indigestion/stomach pain Sodium Chloride () 5 - 15 ml IV UD PRN PRN Reason: SALINE FLUSH Last Admin: 11/15/19 17:42 Dose: 10 ml Documented by: Home Medications: Medications to take at Discharge Docusate Sodium [Colace] 100 mg PO DAILY PRN PRN #60 cap 11/14/19 Oxycodone [Oxyir] 5 mg PO Q6H PRN PRN 7 Days #20 tab 11/14/19 Following Prescrptions Were Given to Patient: Docusate Sodium [Colace] 100 mg PO DAILY PRN PRN #60 cap PRN Reason: Constipation Transmission Status: Received by [facility] Oxycodone [Oxyir] 5 mg PO Q6H PRN PRN 7 Days #20 tab PRN Reason: Pain Score 6-10/10 Transmission Status: Received by [facility] Medical Necessity - Tobacco Use Smoking Status: Never smoker Meaningful Use Info Meaningful Use Diagnoses (Choose all that apply): None applicable
[2019-11-17 08:11] VITALS: BP 124/76; PULSE 69; RESP 14; TEMP 37.1
--- NOTE | 2019-11-17 08:13 | NURSING ---
mepilex off by Tricia Lancaster CNM this am
== END 2019-11-17 10:15 | disposition home or self-care (01) | DRG 785 ==
PROVIDERS: Admitting Provider Obstetrics & Gynecology; Visit Provider Obstetrics & Gynecology
PROC: 10D00Z1 Extraction of Products of Conception, Low, Open Approach (ICD-10-PCS; CPT 59514; principal; 2019-11-14 11:45)
DX: O80 Encounter for full-term uncomplicated delivery (principal); Z30.2 Encounter for sterilization; Z37.0 Single live birth; Z3A.39 39 weeks gestation of pregnancy
CPT/HCPCS: 85025; 85027; 86850; 86900; 86901; 99218; J7120; A4216; G0378; J2405